=== PATIENT | male | born 1995 | race Caucasian/White ===

== ENCOUNTER 2016-05-12 10:46 | Emergency (ER) | payer OTHER ==
[~2016-05-12] VITALS: Ht 124.5 cm; Wt 46.9 kg
[~2016-05-12 10:46] MED LIST: MOBIC15 MG PO; ROBITUSSIN100 MG/5 M PO
[2016-05-12 12:03] LABS: INFLUENZA A VIRAL ANTIGEN POSITIVE; INFLUENZA B VIRAL ANTIGEN NEGATIVE
[2016-05-12] MEDS ORDERED: ZOFRAN ODT4 MG PO (12:06)
[2016-05-12 12:25] LABS: HEMATOCRIT 38.1 % (38.0-50.0); MCH 29.5 PG (29.0-34.0); MCHC 33.9 G/DL (30.0-36.0); MEAN PLAT.VOLUME 9.6 uM^3 (9.0-12.4); PLATELET COUNT 162 K/uL (156-360); RBC DIS.WIDTH-CV 12.8 % (11.8-14.6); RED BLOOD COUNT 4.38 M/uL (4.00-5.50); WHITE BLOOD COUNT 8.8 K/uL (4.1-10.2)
[2016-05-12 12:36] LABS: CHLORIDE 108 mEq/L (99-109); POTASSIUM 3.3 mEq/L (3.7-5.4); SODIUM 135 mEq/L (136-147)
[2016-05-12 12:38] LABS: GLUCOSE 86 mg/dL (70-99)
[2016-05-12 12:39] LABS: ANION GAP 9 MEQ/L (2-14)
[2016-05-12 12:40] LABS: TOTAL BILIRUBIN 0.3 mg/dL (0.0-1.0)
[2016-05-12 12:42] LABS: ALKALINE PHOSPHATASE 51 IU/L (3-129); GFR ESTIMATE (CALCULATED) > 59 mL/min/
[2016-05-12 12:43] VITALS: BP 149/67
[2016-05-12 12:43] LABS: UREA NITROGEN (BUN) 11 mg/dL (9-23)
== END 2016-05-12 12:45 | disposition home or self-care (01) ==
LOC: EME 10:46 → RME 10:46
PROVIDERS: Nurse Practitioner Family
DX: J10.1 Influenza due to other identified influenza virus with other respiratory manifestations (principal); F17.200 Nicotine dependence, unspecified, uncomplicated
CPT/HCPCS: 71020; 80053; 85027; 87502; 87651 90; 99281; 99284; J7030

== ENCOUNTER 2016-05-13 15:28 | Emergency (ER) | payer OTHER ==
[~2016-05-13] VITALS: Ht 124.5 cm; Wt 47.9 kg
[~2016-05-13 15:28] MED LIST changes: +ZOFRAN ODT4 MG PO
[2016-05-13 15:59] LABS: HEMATOCRIT 42.7 % (38.0-50.0); MCH 29.6 PG (29.0-34.0); MCHC 33.7 G/DL (30.0-36.0); MCV 87.7 FL (86-99); MEAN PLAT.VOLUME 9.9 uM^3 (9.0-12.4); PLATELET COUNT 165 K/uL (156-360); RBC DIS.WIDTH-CV 13.2 % (11.8-14.6); RBC DIS.WIDTH-SD 41.4 % (39-53); RED BLOOD COUNT 4.87 M/uL (4.00-5.50); WHITE BLOOD COUNT 7.2 K/uL (4.1-10.2)
[2016-05-13 16:08] LABS: CHLORIDE 105 mEq/L (99-109); SODIUM 138 mEq/L (136-147)
[2016-05-13 16:10] LABS: GLUCOSE 70 mg/dL (70-99); POTASSIUM 4.1 mEq/L (3.7-5.4)
[2016-05-13 16:11] LABS: ANION GAP 14 MEQ/L (2-14)
[2016-05-13 16:13] LABS: GFR ESTIMATE (CALCULATED) > 59 mL/min/
[2016-05-13 16:14] LABS: UREA NITROGEN (BUN) 10 mg/dL (9-23)
[2016-05-13 16:19] LABS: TROP-I INTERPRETATION NEGATIVE; TROPONIN-I < 0.01 ng/mL (0.0-0.30)
[2016-05-13 16:30] VITALS: BP 137/58
== END 2016-05-13 18:01 | disposition left against medical advice (07) ==
LOC: EME 15:28
DX: R07.89 Other chest pain (principal); F17.200 Nicotine dependence, unspecified, uncomplicated
CPT/HCPCS: 71020; 80048; 84484; 85027; 93005; 99281; 99284